=== PATIENT | female | born 1950 | race Caucasian/White ===

== ENCOUNTER 2019-04-10 03:48 | Emergency (ER) | payer MEDICARE, BC ==
[2019-04-10] MEDS ORDERED: Ondansetron 4 MG/2 ML SDV IVPUSH ONE (04:07)
[2019-04-10] MEDS ORDERED: Famotidine/Normal Saline 20 MG in Premix Bag 1 BAG IV ONE (04:07)
[2019-04-10] MEDS ORDERED: Sodium Chloride 0.9% 1,000 ML IV ONE (04:07)
--- NOTE | 2019-04-10 04:22 | EDM.PDOC ---
ED HPI GENERAL MEDICAL PROBLEM - General Chief Complaint: Abdominal Pain Stated Complaint: VOMITING Time Seen by Provider: 04/10/19 04:00 Source of Information: Reports: Patient, Family, Old Records History Limitations: Reports: No Limitations - History of Present Illness INITIAL COMMENTS - FREE TEXT/NARRATIVE: patient is a previously healthy 68-year-old female who presents with concern for acute onset crampy abdominal pain starting around 10 PM. She has vomited twice, and has difficulty finding any kind of comfortable position on the bed. She said initially it felt like menstrual cramps, however it has continued to worsen. She has tried taking Pepto-Bismol but she just vomited it up. So PCP in February and had laboratory work and imaging performed with concern for thyroid disease, she was subsequently started on thyroid medication. CT chest and abdomen was negative at that time. Per the notes she had also had some unintentional weight loss. Unable to access medications but think she had low thyroid. No history of kidney stones or bowel obstruction. just return from a car trip across [place], had hot dogs for dinner, her ate the same thing. She denies headache, blurry vision, chest pain, cough, shortness of breath. She also denies any urinary symptoms such as increased urination, funny smell and urgency. She has no numbness or tingling in any of her extremities and does not have any edema or calf swelling. - Related Data Allergies Allergy/AdvReac Type Severity Reaction Status Date / Time No Known Allergies Allergy Verified 03/04/19 10:42 Past Medical History Cardiovascular History: Reports: Hypertension Endocrine/Metabolic History: Reports: Hyperthyroidism - Past Surgical History GI Surgical History: Reports: Appendectomy (w/ hysterectomy) Female Surgical History: Reports: Hysterectomy, Salpingo-Oophorectomy Social & Family History - Family History Family Medical History: Noncontributory - Tobacco Use Smoking Status *Q: Current Every Day Smoker Tobacco Use Comment: 1/2 ppd - Alcohol Use Alcohol Use History: Yes Number of Drinks Per Day Comment: 2 whiskey coke - Recreational Drug Use Recreational Drug Use: No - Living Situation & Occupation Living situation: Reports: Occupation: Retired Social History Comment: just returned from road trip out [place] ED ROS GENERAL - Review of Systems Review Of Systems: ROS reveals no pertinent complaints other than HPI. ED EXAM, GENERAL - Physical Exam Exam: See Below Free Text/Narrative:: Gen.: Alert, uncomfortable and can't find a comfortable position on the bed. Pupils are equal and reactive, facial muscles are symmetric, throat is without erythema and mucous membranes appear slightly dry. Neck is supple and she has no cervical adenopathy. Heart is regular rate and rhythm, lungs are clear throughout with no wheezes or crackles. No costovertebral angle tenderness. Peripheral pulses +2 in the upper and lower extremities, feet are noted to be slightly cold. She has no lower extremity edema. Her gait is altered as she protects her abdomen but otherwise normal and she has equal strength side-to- side Course - Vital Signs Text/Narrative:: initial evaluation - differential bowel obstruction, bowel ischemia, pancreatitis, acute cholecystitis/choledocholithiasis. Pyelonephritis seems less likely with acute onset. Ovaries/uterus and appendix already removed. labs ordered, IVF, morphine, zofran. likely will need CT Last Recorded V/S: Last Vital Signs Temp 36.6 C 04/10/19 06:21 Pulse 84 04/10/19 06:21 Resp 18 04/10/19 06:21 BP 132/72 04/10/19 06:21 Pulse Ox 99 04/10/19 06:21 - Orders/Labs/Meds Orders: Active Orders 24 hr Category Date Time Status Abdomen Pelvis w Cont [CT] Stat Exams 04/10/19 04:41 Taken Morphine Med 04/10/19 06:23 Active 3 mg IVPUSH Q1H PRN Piperacillin/Tazobactam [Zosyn] 3.375 gm Med 04/10/19 07:01 Active Sodium Chloride 0.9% [Normal Saline] 50 ml IV ONETIME Potassium Chloride [KCL 20 MEQ in Water 100 ML] 20 meq Med 04/10/19 05:57 Active Premix Bag 1 bag IV ONETIME Sodium Chloride 0.9% [Normal Saline] 1,000 ml Med 04/10/19 06:15 Active IV ASDIRECTED Medication Orders Potassium Chloride 20 meq/ (Premix) 100 mls @ 50 mls/hr IV ONETIME ONE Stop: 04/10/19 07:56 Last Admin: 04/10/19 06:25 Dose: 50 mls/hr Sodium Chloride (Normal Saline) 1,000 mls @ 150 mls/hr IV ASDIRECTED EVANGELINA Last Admin: 04/10/19 06:29 Dose: 150 mls/hr Piperacillin Sod/Tazobactam (Sod 3.375 gm/ Sodium Chloride) 50 mls @ 100 mls/ hr IV ONETIME ONE Stop: 04/10/19 07:30 Morphine Sulfate (Morphine) 3 mg IVPUSH Q1H PRN PRN Reason: Abdominal Pain Last Admin: 04/10/19 06:48 Dose: 3 mg Labs: Laboratory Tests 04/10/19 04/10/19 04/10/19 Range/Units 04:08 04:15 04:15 WBC 15.2 H (4.5-12.0) X10-3/uL RBC 4.70 (3.23-5.20) x10(6)uL Hgb 15.0 (11.5-15.5) g/dL Hct 43.8 (30.0-51.3) % MCV 93.2 (80-96) fL MCH 31.9 (27.7-33.6) pg MCHC 34.2 (32.2-35.4) g/dL RDW 11.8 (11.5-15.5) % Plt Count 303 (125-369) X10(3)uL MPV 7.9 (7.4-10.4) fL Add Manual Diff Yes Neutrophils % (Manual) 93 H (46-82) % Lymphocytes % (Manual) 4 L (13-37) % Monocytes % (Manual) 2 L (4-12) % Basophils % (Manual) 1 (0-2) % D-Dimer, Quantitative (0.0-0.59) mg/LFEU Sodium 138 (135-145) mmol/L Potassium 3.2 L (3.5-5.3) mmol/L Chloride 102 (100-110) mmol/L Carbon Dioxide 25 (21-32) mmol/L BUN 14 (7-18) mg/dL Creatinine 0.7 (0.55-1.02) mg/dL Est Cr Clr Drug Dosing TNP Estimated GFR (MDRD) > 60 (>60) BUN/Creatinine Ratio 20.0 (9-20) Glucose 176 H (80-116) mg/dL Lactic Acid (0.4-2.2) mmol/L Calcium 9.3 (8.6-10.2) mg/dL Magnesium (1.8-2.5) mg/dL Total Bilirubin 0.3 (0.1-1.3) mg/dL AST 26 H (5-25) IU/L ALT 41 H (12-36) U/L Alkaline Phosphatase 119 H (56-112) IU/L Total Protein 7.3 (6.0-8.0) g/dL Albumin 3.6 (3.2-4.6) g/dL Globulin 3.7 g/dL Albumin/Globulin Ratio 1.0 Amylase 60 (25-115) U/L Urine Color Yellow (YELLOW) Urine Appearance Cloudy (CLEAR) Urine pH 7.0 H (5.0-6.5) Ur Specific [place] 1.010 (1.010-1.025) Urine Protein Negative (NEGATIVE) mg/dL Urine Glucose (UA) 250 H (NORMAL) mg/dL Urine Ketones 15 H (NEGATIVE) mg/dL Urine Occult Blood Negative (NEGATIVE) Urine Nitrite Negative (NEGATIVE) Urine Bilirubin Negative (NEGATIVE) Urine Urobilinogen Normal (NEGATIVE) mg/dL Ur Leukocyte Esterase Small H (NEGATIVE) Urine RBC 0-5 (0-5) Urine WBC 0-5 (0-5) Ur Squamous Epith Cells Few H (NS,R,O) Amorphous Sediment Many Urine Bacteria Few H (NS) 04/10/19 04/10/19 04/10/19 Range/Units 04:15 04:15 04:15 WBC (4.5-12.0) X10-3/uL RBC (3.23-5.20) x10(6)uL Hgb (11.5-15.5) g/dL Hct (30.0-51.3) % MCV (80-96) fL MCH (27.7-33.6) pg MCHC (32.2-35.4) g/dL RDW (11.5-15.5) % Plt Count (125-369) X10(3)uL MPV (7.4-10.4) fL Add Manual Diff Neutrophils % (Manual) (46-82) % Lymphocytes % (Manual) (13-37) % Monocytes % (Manual) (4-12) % Basophils % (Manual) (0-2) % D-Dimer, Quantitative 0.74 H (0.0-0.59) mg/LFEU Sodium (135-145) mmol/L Potassium (3.5-5.3) mmol/L Chloride (100-110) mmol/L Carbon Dioxide (21-32) mmol/L BUN (7-18) mg/dL Creatinine (0.55-1.02) mg/dL Est Cr Clr Drug Dosing Estimated GFR (MDRD) (>60) BUN/Creatinine Ratio (9-20) Glucose (80-116) mg/dL Lactic Acid 2.6 H (0.4-2.2) mmol/L Calcium (8.6-10.2) mg/dL Magnesium 1.9 (1.8-2.5) mg/dL Total Bilirubin (0.1-1.3) mg/dL AST (5-25) IU/L ALT (12-36) U/L Alkaline Phosphatase (56-112) IU/L Total Protein (6.0-8.0) g/dL Albumin (3.2-4.6) g/dL Globulin g/dL Albumin/Globulin Ratio Amylase (25-115) U/L Urine Color (YELLOW) Urine Appearance (CLEAR) Urine pH (5.0-6.5) Ur Specific [place] (1.010-1.025) Urine Protein (NEGATIVE) mg/dL Urine Glucose (UA) (NORMAL) mg/dL Urine Ketones (NEGATIVE) mg/dL Urine Occult Blood (NEGATIVE) Urine Nitrite (NEGATIVE) Urine Bilirubin (NEGATIVE) Urine Urobilinogen (NEGATIVE) mg/dL Ur Leukocyte Esterase (NEGATIVE) Urine RBC (0-5) Urine WBC (0-5) Ur Squamous Epith Cells (NS,R,O) Amorphous Sediment Urine Bacteria (NS) Meds: Medications Generic Name Dose Route Start Last Admin Trade Name Freq PRN Reason Stop Dose Admin Potassium Chloride 20 meq/ 100 mls @ 50 mls/hr 04/10/19 05:57 04/10/19 06:25 Premix IV 04/10/19 07:56 50 mls/hr ONETIME ONE Administration Sodium Chloride 1,000 mls @ 150 mls/hr 04/10/19 06:15 04/10/19 06:29 Normal Saline IV 150 mls/hr ASDIRECTED EVANGELINA Administration Piperacillin Sod/Tazobactam 50 mls @ 100 mls/hr 04/10/19 07:01 Sod 3.375 gm/ Sodium Chloride IV 04/10/19 07:30 ONETIME ONE Morphine Sulfate 3 mg 04/10/19 06:23 04/10/19 06:48 Morphine IVPUSH 3 mg Q1H PRN Administration Abdominal Pain Discontinued Medications Generic Name Dose Route Start Last Admin Trade Name Jodi PRN Reason Stop Dose Admin Famotidine 20 mg/ Premix 50 mls @ 200 mls/hr 04/10/19 04:07 04/10/19 04:25 IV 04/10/19 04:08 200 mls/hr ONETIME ONE Administration Sodium Chloride 1,000 mls @ 1,000 mls/hr 04/10/19 04:07 04/10/19 04:25 Normal Saline IV 04/10/19 05:06 1,000 mls/hr .BOLUS ONE Administration Magnesium Sulfate 2 gm/ Premix 50 mls @ 150 mls/hr 04/10/19 06:14 04/10/19 06 :35 IV 04/10/19 06:33 150 mls/hr ONETIME ONE Administration Iopamidol 61 ml 04/10/19 04:51 04/10/19 05:09 Isovue-370 (76%) IV 04/10/19 04:52 61 ml ONETIME ONE Administration Morphine Sulfate 2 mg 04/10/19 04:17 04/10/19 06:24 Morphine IVPUSH 2 mg Q1H PRN Administration Abdominal Pain Ondansetron HCl 4 mg 04/10/19 04:07 04/10/19 04:26 Zofran IVPUSH 04/10/19 04:08 4 mg ONETIME ONE Administration - Re-Assessments/Exams Free Text/Narrative Re-Assessment/Exam: 04/10/19 labs reviewed, creatinine ok, elevated WBCs, lactic acid 2.6 UA questionable infection, no nitrites, leuk esterace positive d-dimer slightly elevated, also slight elevation in LFTs potassium low, will replace IV CT abdomen/pelvis ordered Free Text/Narrative Re-Assessment/Exam: 04/10/19 patient resting more comfortably after 4 morphine. fluids running, CT report pending Free Text/Narrative Re-Assessment/Exam: 04/10/[address] report, closed loop bowel obstruction, some edema noted. Call placed to Dr Perkins, who will come evaluate patient. Dr Perkins able to access [facility] record, determines patient is too high risk for our facility with potentially untreated or partially treated hypERthyroidism. Call placed to [facility], Dr. Leal accepting patient Prior to transfer: 1L NS plus maintenance IVF w/ electrolytes received potassium 20meq magnesium 2gm given (QTc 501) Zosyn 3.375mg given just prior to leaving morphine 10mg IV over course of stay, has needed repeated bumps zofran 4mg IV X1, no additional vomiting since arrival CT requested to be pushed to [facility] PACS Departure - Departure Time of Disposition: 07:15 Disposition: DC/Tfer to Acute Hospital 02 Condition: Serious Clinical Impression: Small bowel obstruction, Abdominal pain, Lactic acidosis - Discharge Information *PRESCRIPTION DRUG MONITORING PROGRAM REVIEWED*: Not Applicable *COPY OF PRESCRIPTION DRUG MONITORING REPORT IN PATIENT MAIA: Not Applicable Referrals: Radha Velasquez POLYSOMNOGRAPHY TECHNICIAN [Primary Care Provider] - Forms: ED Department Discharge Additional Instructions: transferred to [facility] by [facility] for emergent surgery, closed loop bowel obstruction - My Orders Last 24 Hours: My Active Orders 04/10/19 04:41 Abdomen Pelvis w Cont [CT] Stat 04/10/19 05:57 Potassium Chloride [KCL 20 MEQ in Water 100 ML] 20 meq Premix Bag 1 bag IV ONETIME 04/10/19 06:15 Sodium Chloride 0.9% [Normal Saline] 1,000 ml IV ASDIRECTED 04/10/19 06:23 Morphine 3 mg IVPUSH Q1H PRN 04/10/19 07:01 Piperacillin/Tazobactam [Zosyn] 3.375 gm Sodium Chloride 0.9% [Normal Saline] 50 ml IV ONETIME - Assessment/Plan Last 24 Hours: My Active Orders 04/10/19 04:41 Abdomen Pelvis w Cont [CT] Stat 04/10/19 05:57 Potassium Chloride [KCL 20 MEQ in Water 100 ML] 20 meq Premix Bag 1 bag IV ONETIME 04/10/19 06:15 Sodium Chloride 0.9% [Normal Saline] 1,000 ml IV ASDIRECTED 04/10/19 06:23 Morphine 3 mg IVPUSH Q1H PRN 04/10/19 07:01 Piperacillin/Tazobactam [Zosyn] 3.375 gm Sodium Chloride 0.9% [Normal Saline] 50 ml IV ONETIME
[2019-04-10] MEDS: Morphine 2 MG/ML Syringe IVPUSH PRN ×7 (04:47→07:47)
[2019-04-10] MEDS ORDERED: Iopamidol 755 Mg/ML 75 ML Bottle IV ONE (04:51)
[2019-04-10] MEDS ORDERED: Potassium Chloride 20 MEQ in Premix Bag 1 BAG IV ONE (05:57)
[2019-04-10] MEDS ORDERED: Magnesium Sulfate/Water 2 GM in Premix Bag 1 BAG IV ONE (06:14)
[2019-04-10] MEDS ORDERED: Sodium Chloride 0.9% 1,000 ML IV SCH (06:15)
[2019-04-10] MEDS ORDERED: Piperacillin/Tazobactam 3.375 GM in Sodium Chloride 0.9% 50 ML IV ONE (07:01)
--- NOTE | 2019-04-13 13:37 | CONS ---
DATE OF CONSULTATION: 04/10/2019 CHIEF COMPLAINT: Abdominal pain. HISTORY OF PRESENT ILLNESS: This is a 68-year-old white female who is referred with a history of abdominal pain that started this morning. It has been crampy in nature, it got progressively worse, it is accompanied by some emesis. Presented to the emergency department and was noted on subsequent workup to have an elevated white count. Her lactic acid was 2.6, and on CT scan appears to have a closed-loop bowel obstruction. She has a history of multiple surgeries including section and hysterectomy. ALLERGIES: She reports no known drug allergies. SOCIAL HISTORY: The patient has a [id number] smoking history. She drinks alcohol, has one mixed drink from night. PAST MEDICAL HISTORY: She has a history of hyperthyroidism, hypertension. She has just recently been diagnosed and has been started on treatment for this disease. PAST SURGICAL HISTORY: As mentioned above. REVIEW OF SYSTEMS: The patient admits to 15 pounds weight loss, generalized. HEENT: She notes some dryness. PULMONARY: Unremarkable. CARDIAC: Unremarkable. ABDOMINAL: Per HPI. PELVIC: She denies any [employer]IOR [employer] symptoms. NEUROLOGIC: Denies. PHYSICAL EXAMINATION: GENERAL: This is a well-developed, thin female, appearing in moderate distress. HEENT: Normal limits. TMs are occluded bilaterally. Oropharynx was clear. HEART: Had a regular rate and rhythm. ABDOMEN: Soft, nontender. ABDOMEN: Demonstrates hypoactive bowel sounds. No marked rebound or guarding was noted. LABORATORY DATA: Laboratory pertinent labs as noted above. ASSESSMENT: The patient does appear to have a small bowel obstruction, which requires surgical intervention. It is worrisome that the patient has recently been diagnosed and started on treatment for hyperthyroidism. This would put her at increased risk potentially for thyroid storm during any urgent operation. As a result, I am recommending transfer to [facility] for Endocrinology and better postoperative surgical care is potentially available. /[id number] /MODL
== END 2019-04-10 07:52 ==
LOC: FB.ED 03:48
DX: K56.609 Unspecified intestinal obstruction, unspecified as to partial versus complete obstruction (principal); E87.2 Acidosis; I10 Essential (primary) hypertension; F17.210 Nicotine dependence, cigarettes, uncomplicated; Z90.49 Acquired absence of other specified parts of digestive tract; Z90.710 Acquired absence of both cervix and uterus
CPT/HCPCS: 36415; 74177; 80053; 81001; 82150; 83605; 83735; 85025; 85379; 96361; 96365; 96367; 96368; 96375; 96376; 99285; J2270; J2405; J2543; J3475; J3480; J7030; J7050; Q9967